=== PATIENT | female | born 1935 | race Caucasian/White ===

== ENCOUNTER 2016-08-30 11:05 | Emergency (ER) | payer MEDICARE, MEDICAID ==
[2016-08-30] MEDS ORDERED: ASPIRIN TABLET 325 MG TAB PO ONE (11:35)
[2016-08-30] MEDS ORDERED: SODIUM CHLORIDE 0.9% (FLUSH) 10 ML SYG IV PRN (11:35)
--- NOTE | 2016-08-30 11:52 | RAD ---
EXAM DESCRIPTION: Chest,1 View CLINICAL HISTORY: chest pain COMPARISON: August 24, 2013 IMPRESSION: Single AP portable upright view of the chest shows postsurgical changes from sternotomy and aortic valve replacement. Multilead left subclavian transvenous cardiac pacemaker is seen. There is increased density in the lower left perihilar region and elevated left hemidiaphragm with shift of the cardiomediastinal silhouette towards the left suggesting atelectasis of a portion of the left lung. There could also be left pleural effusion. This is significantly changed from previous. Consider further evaluation with postcontrast CT of the chest to exclude left hilar mass. Right lung is normally aerated and clear. No right pleural effusion is seen. Electronically signed by: Vito Su MD 08/30/2016 11:52 AM WARP HAND
[2016-08-30] MEDS ORDERED: MORPHINE SULFATE INJ 10 MG/ML VIAL IV ONE (13:32)
--- NOTE | 2016-08-30 15:09 | CT ---
EXAM DESCRIPTION: Chest w/o Contrast CLINICAL HISTORY: LEFT PLEURAL EFFUSION, CHEST PAIN COMPARISON: None. TECHNIQUE: Non contrast multidetector CT imaging of the chest. Multiplanar reconstructions were provided. FINDINGS: Today's exam of the chest is limited. Pneumobilia noted on today's study within the liver. Severe cardiomegaly. Severe coronary artery disease. Pacing device noted. Probable pulmonary artery hypertension as the main pulmonary artery measures 3 cm in diameter. There is atelectasis of the left upper lobe. Etiology may be related to obstruction of the upper lobe bronchi as they are not filled with air. The aerated left lower lobe appears grossly unremarkable. The right lung apices a few small pulmonary nodules that measure no more than 2-3 mm in diameter. IMPRESSION: There is atelectasis of the left upper lobe due to obstruction of the left upper lobe pulmonary bronchus as they are poorly visualized on today's noncontrasted exam. The atelectasis of the left upper lobe is felt to be due to an endobronchial lesion or mucous plug rather than a left hilar mass. Direct visualization is suggested. The aerated left lung and right lung demonstrate no urgent findings. There are a few small pleural nodule seen on the right lung. Small left pleural effusion noted. Pneumobilia of uncertain etiology seen on today's study. Electronically signed by: Dominick Hull MD 08/30/2016 3:08 PM FOOD SAFETY OFFICER
[2016-08-30 15:34] VITALS: TEMP 98
--- NOTE | 2016-08-30 16:00 | ED.PDOC ---
History of Present Illness - General Chief Complaint: Chest Pain/MD Stated Complaint: chest pain Time Seen by Provider: 08/30/16 12:27 Source: patient, family, [facility] Exam Limitations: other - History of Present Illness Initial Comments: FAMILY REPORTS THAT PT BEGAN TO COMPLAIN OF CHEST PAIN THIS MORNING. PAIN IS ASSOCIATED WITH OCCASIONAL COUGHING. PT DESCRIBES THE PAIN A STABBING SENSATION. NO FEVER, CHILLS, OR SHORTNESS OF BREATH REPORTED. Timing/Duration: 4-6 hours Severity/Quality: sharp, stabbing Location: substernal Chest Pain Radiation: no radiation Activities at Onset: none Prior Chest Pain/Cardiac Workup: no prior chest pain Improving Factors: nothing Worsening Factors: nothing Nitro Today/Relief: no nitro taken today Aspirin Treatment Today: no aspirin today Allergies/Adverse Reactions: Allergies Glyburide [From Glucovance] Allergy (Verified 03/29/16 13:00) Metformin Allergy (Verified 03/29/16 13:00) Rosuvastatin [From Crestor] Allergy (Verified 03/29/16 13:00) Statins Allergy (Verified 03/29/16 13:00) Varenicline [From Chantix] Allergy (Verified 03/29/16 13:00) Home Medications: Ambulatory Orders Cyanocobalamin [Vitamin B-12] 500 mcg SL DAILY 10/22/15 Digoxin 0.125 mg PO MISA-OTH-DAY 10/22/15 Furosemide [Lasix Tab] 80 mg PO DAILY 10/22/15 HYDROcodone 5MG/APAP 325MG [[place] 5/325] 1 ea PO Q6H PRN 10/22/15 Potassium Chloride [Micro-K] 10 meq PO DAILYBK 10/22/15 Acetaminophen W/ Codeine [Tylenol W/ CODEINE #3] 1 ea PO Q4H PRN 03/29/16 Folic Acid 400 mcg PO DAILY 03/29/16 Insulin Detemir [Levemir] 10 units SUBCU DAILY 03/29/16 Polyethylene Glycol 3350 [Miralax] 17 gm PO MOFR 03/29/16 Sotalol HCl 80 mg PO BID 03/29/16 Review of Systems - Review of Systems Constitutional: Denies: chills, fever EENTM: Denies: ear pain, throat pain Respiratory: States: see HPI, cough. Denies: short of breath Cardiology: States: see HPI, chest pain. Denies: palpitations Gastrointestinal/Abdominal: Denies: abdominal pain, nausea, vomiting Genitourinary: Denies: dysuria, frequency Musculoskeletal: Denies: joint pain, joint swelling Skin: Denies: lesions, rash Neurological: States: no symptoms reported Endocrine: States: no symptoms reported Hematologic/Lymphatic: States: no symptoms reported Past Medical History (General) - Patient Medical History Hx Seizures: No Hx Stroke: No Hx Dementia: Yes - AGE RELATED COG DECLINE Hx Asthma: No Hx of COPD: Yes Hx Cardiac Disorders: Yes - PVD Hx Congestive Heart Failure: Yes Hx Pacemaker: Yes Hx Hypertension: Yes Hx Diabetes: No Hx Gastroesophageal Reflux: Yes Hx Renal Disease: Yes Hx MRSA: No Surgical History: other - Vaccination History Hx Tetanus, Diphtheria Vaccination: No Hx Influenza Vaccination: Yes Hx Pneumococcal Vaccination: Yes - Social History Hx Tobacco Use: Yes Hx Chewing Tobacco Use: No Hx Alcohol Use: No Hx Substance Use: No Hx Physical Abuse: No Hx Emotional Abuse: No - Activities of Daily Living [facility]Assisted Living (if applicable):: [facility] Agency (if applicable):: None - Female History Patient is a Female of Child Bearing Age (10 -59 yrs old): No Patient : No Family Medical History - Family History Mother Family History: Unknown Living Status: Physical Exam - Physical Exam General Appearance: Alert, No apparent distress Eyes, Ears, Nose, Throat Exam: normal ENT inspection Neck: non-tender, full range of motion Respiratory: lungs clear, normal breath sounds Cardiovascular/Chest: regular rate, rhythm, no murmur Gastrointestinal/Abdominal: non tender, soft Extremity: normal range of motion, non-tender, normal inspection Neurologic: alert, normal mood/affect Skin Exam: normal color, warm/dry Progress - Progress Progress: 08/30/16 16:03 PT RESTING COMFORTABLY AT THIS TIME. PT STATES PAIN HAS RESOLVED AND REFUSED, IV MORPHINE THAT WAS ORDERED. LABS, CXR, CT FINDINGS DISCUSSED WITH FAMILY AND PATIENT WHO AGREE WITH PLAN TO TRANSFER TO [facility] FOR PULMONOLOGY AND CARDIOLOGY CONSULTATION SECONDARY TO FINDINGS ON CT OF CHEST. - Results/Orders Results/Orders: CXR SHOWS ATELECTASIS OF HOMA CONCERNING FOR OBSTRUCTIVE MASS, CT RECOMMENDED. CT CHEST SHOWS ATELECTASIS OF HOMA WITH POSSIBLE ENDOBRONCHIAL LESION VS MUCOUS PLUG, DIRECT VISUALIZATION RECOMMENDED. Laboratory Tests 08/30/16 11:46 WBC 10.2 RBC 3.68 L Hgb 10.6 L Hct 33.0 L MCV 89.5 MCH 28.8 MCHC 32.1 L RDW 16.6 H Plt Count 122 L MPV 10.9 H Absolute Neuts (auto) 8.80 H Absolute Lymphs (auto) 0.60 L Absolute Monos (auto) 0.70 Absolute Eos (auto) 0.10 Absolute Basos (auto) 0.10 Neutrophils % 86.6 H Lymphocytes % 5.6 L Monocytes % 6.6 Eosinophils % 0.5 L Basophils % 0.7 PT 13.3 H INR 1.180 PTT (SP) 31.9 Sodium 140 Potassium 5.3 H Chloride 109 Carbon Dioxide 23 Anion Gap 13.3 BUN 31 H Creatinine 1.31 H BUN/Creatinine Ratio 23.7 H Random Glucose 133 H Serum Osmolality 287.9 Calcium 9.2 Magnesium 2.0 Creatine Kinase 17 L CK-MB (CK-2) 0.9 CK-MB (CK-2) % Not Reportable Troponin I 0.03 B-Natriuretic Peptide 1200.0 H* - EKG/XRAY/CT EKG: LBBB Comments: PACED RHYTHM AT 70BPM, NO AXIS, QRS 172, QTC 498. Departure - Departure Clinical Impression: Pleural effusion, Concern about cancer without diagnosis Chest pain Qualifiers: Chest pain type: chest pain on breathing Qualifier Code: (R07.1) Chest pain on breathing Time of Disposition: 16:13 Disposition: Transfer to Hospital Condition: Good Departure Forms: ED Discharge - Pt. Copy, Patient Portal Self Enrollment Referrals: Kelton Segura III, MD [Primary Care Provider] - 1-2 Weeks Home Medications: Ambulatory Orders Cyanocobalamin [Vitamin B-12] 500 mcg SL DAILY 10/22/15 Digoxin 0.125 mg PO MISA-OTH-DAY 10/22/15 Furosemide [Lasix Tab] 80 mg PO DAILY 10/22/15 HYDROcodone 5MG/APAP 325MG [[place] 5/325] 1 ea PO Q6H PRN 10/22/15 Potassium Chloride [Micro-K] 10 meq PO DAILYBK 10/22/15 Acetaminophen W/ Codeine [Tylenol W/ CODEINE #3] 1 ea PO Q4H PRN 03/29/16 Folic Acid 400 mcg PO DAILY 03/29/16 Insulin Detemir [Levemir] 10 units SUBCU DAILY 03/29/16 Polyethylene Glycol 3350 [Miralax] 17 gm PO MOFR 03/29/16 Sotalol HCl 80 mg PO BID 03/29/16 Transfer to Outside Facility - Transfer Information Accepting Provider:: DR. CARTER Accepting Facility: [facility] Reason for Transfer: specialized care not available
[2016-08-30 17:47] VITALS: BP 108/68; O2SAT 96
== END 2016-08-30 17:48 | disposition short-term general hospital (02) ==
LOC: ER 11:05
DX: J90 Pleural effusion, not elsewhere classified (principal); R07.1 Chest pain on breathing; R91.8 Other nonspecific abnormal finding of lung field; I11.0 Hypertensive heart disease with heart failure; I50.9 Heart failure, unspecified; K21.9 Gastro-esophageal reflux disease without esophagitis; N28.9 Disorder of kidney and ureter, unspecified; J44.9 Chronic obstructive pulmonary disease, unspecified; F03.90 Unspecified dementia, unspecified severity, without behavioral disturbance, psychotic disturbance, mood disturbance, and anxiety; Z87.891 Personal history of nicotine dependence; Z88.8 Allergy status to other drugs, medicaments and biological substances; Z79.4 Long term (current) use of insulin; Z79.899 Other long term (current) drug therapy

== ENCOUNTER 2016-09-24 09:58 | Emergency (ER) | payer MEDICARE, MEDICAID ==
--- NOTE | 2016-09-24 10:46 | RAD ---
EXAM DESCRIPTION: Chest,1 View CLINICAL HISTORY: fall from chair with left post chest pain COMPARISON: August, CT of the chest dated 30 August 2016 TECHNIQUE: AP portable semierect chest FINDINGS: The patient is poststernotomy for valve replacement. A pacemaker with atrial and ventricular leads are seen in place. Persistent left upper lobe collapse is observed. Remains unchanged in the prior CT in the prior chest film cardiomegaly is evident. The right chest is clear. No pneumothorax is seen. No rib fracturing is detected. IMPRESSION: Persistent left upper lobe collapse is observed unchanged from the prior exam. Electronically signed by: Kelton Hunt MD 09/24/2016 10:45 AM CDT
--- NOTE | 2016-09-24 10:47 | RAD ---
EXAM DESCRIPTION: Scapula,Left CLINICAL HISTORY: fall from chair with left post chest pain COMPARISON: None. TECHNIQUE: 2 views FINDINGS: Mild degenerative changes are observed in the shoulder. No evidence for fracture or dislocation is seen. IMPRESSION: No fracture is detected. Electronically signed by: Kelton Hunt MD 09/24/2016 10:47 AM CDT
--- NOTE | 2016-09-24 10:50 | RAD ---
EXAM DESCRIPTION: Thoracic Spine Lateral Only CLINICAL HISTORY: fall from chair with left post chest pain COMPARISON: CT of the chest dated 30 August 2016 TECHNIQUE: Lateral view FINDINGS: Diffuse osteopenia is noted. Mild wedging of the T12 vertebral body is observed. It can be seen on the prior CT. No further evidence of fracturing is detected. IMPRESSION: Mild compression of T12 is observed. It can be seen on the previous CT of the chest performed on 30 August 2016 Electronically signed by: Kelton Hunt MD 09/24/2016 10:49 AM CDT
[2016-09-24 10:55] VITALS: O2SAT 97
--- NOTE | 2016-09-24 11:35 | CT ---
EXAM DESCRIPTION: Cervical Spine CLINICAL HISTORY: fall from chair COMPARISON: None available. TECHNIQUE: CT of the cervical spine was performed without IV contrast. FINDINGS: There is no vertebral body fracture or subluxation. No prevertebral soft tissue swelling. There are degenerative changes at the atlantoodontoid joint. Degenerative disc disease is noted at C5-6 and C6-7 with posterior osteophytic ridging at the same levels. This facet joint degeneration at several levels in the cervical spine with neuroforaminal stenosis and mild central canal stenosis involving at least the C6-7 level. The spinous and transverse processes are intact. Carotid artery calcifications are noted bilaterally. Cardiac pacemaker leads are present but only partially visualized. Emphysematous changes are noted. There is no apical pneumothorax. There is abnormal density anteriorly in the left hemithorax only partially visualized. Review of a chest CT performed on August 30, 2016 demonstrated left upper lobe atelectasis likely due to an endobronchial lesion, and findings are stable from that time. Small bilateral thyroid nodules are noted, the largest measuring 1.3 cm diameter in the left thyroid lobe with a tiny calcification. IMPRESSION: Moderately advanced multilevel degenerative changes, but no acute cervical spine abnormality. Left upper lobe atelectasis, only partially visualized. Please see separate report from recent chest CT for further discussion of findings and recommendations. Carotid artery calcifications bilaterally. Nonemergent carotid artery ultrasound is suggested for further evaluation. Emphysema. Small bilateral thyroid nodules. Based on their size and patient's age, no further follow-up is recommended. Electronically signed by: Willi Duffy MD 09/24/2016 11:34 AM CDT
--- NOTE | 2016-09-24 11:37 | CT ---
EXAM DESCRIPTION: Head CLINICAL HISTORY: 81 years, Female, fall from chair COMPARISON: Head CT performed on August 24, 2013 TECHNIQUE: Head CT was performed without IV contrast. FINDINGS: There is no acute intracranial hemorrhage. There is no midline shift or other mass effect. The ventricles and basilar cisterns are fairly well-maintained. Chronic ischemic changes are noted in the periventricular white matter. 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 No posterior fossa lesion or acute cortical infarct. The basal ganglia are unremarkable. Visualized paranasal sinuses and orbits are unremarkable. Vascular calcifications are noted. 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 Electronically signed by: Willi Duffy MD 09/24/2016 11:36 AM CDT
--- NOTE | 2016-09-24 12:19 | ED.PDOC ---
History of Present Illness - General Chief Complaint: Upper Extremity Injury Stated Complaint: left shoulder discomfort, skin tear left hand Time Seen by Provider: 09/24/16 10:05 Source: patient, family Exam Limitations: no limitations - History of Present Illness Initial Comments: the patient is an 81-year-old female presenting to the emergency room for long-term care facility due to the arm of the chair she was in breaking in her falling out of the chair. The patient landed on her left upper back around the scapular area and she does have some pain there and some mild bruising. Range of motion does appear to be preserved. She also somehow managed to get an abrasion to her forehead as well as a few small skin tears to her left hand. No loss of consciousness. No altered mental status. No other areas of pain that she is reporting. No real neck pain. Occurred: just prior to arrival Pain - Upper Extremity: mild: Shoulder, left Method of Injury: fell Improving Factors: nothing Worsening Factors: nothing Allergies/Adverse Reactions: Allergies Glyburide [From Glucovance] Allergy (Verified 09/24/16 10:08) Metformin Allergy (Verified 09/24/16 10:08) Rosuvastatin [From Crestor] Allergy (Verified 09/24/16 10:08) Statins Allergy (Verified 09/24/16 10:08) Varenicline [From Chantix] Allergy (Verified 09/24/16 10:08) Home Medications: Ambulatory Orders Cyanocobalamin [Vitamin B-12] 500 mcg SL DAILY 10/22/15 Digoxin 0.125 mg PO MISA-OTH-DAY 10/22/15 Furosemide [Lasix Tab] 80 mg PO DAILY 10/22/15 Potassium Chloride [Micro-K] 10 meq PO DAILYBK 10/22/15 Acetaminophen W/ Codeine [Tylenol W/ CODEINE #3] 1 ea PO Q4H PRN 03/29/16 Folic Acid 400 mcg PO DAILY 03/29/16 Sotalol HCl 80 mg PO BID 03/29/16 ALPRAZolam [Xanax] 0.25 mg PO Q12H PRN 09/24/16 Cholecalciferol [Vitamin D3] 50,000 unit PO DAILY 09/24/16 Cholestyramine Powder [Questran Powder] 4 gm PO BID 09/24/16 Lisinopril 2.5 mg PO DAILY 09/24/16 Megestrol Acetate [Megace Oral] 1 tsp PO DAILY 09/24/16 Metoprolol Succinate [Metoprolol Succinate ER] 25 mg PO DAILY 09/24/16 Mirtazapine [Remeron] 15 mg PO BEDTIME 09/24/16 Ranitidine HCl [Zantac] 300 mg PO BID 09/24/16 Review of Systems - Review of Systems Review of Systems: 09/24/16 12:19 compared to her baseline complaints: Constitutional: States: no symptoms reported EENTM: States: no symptoms reported Respiratory: States: no symptoms reported Cardiology: States: no symptoms reported Gastrointestinal/Abdominal: States: no symptoms reported Genitourinary: States: no symptoms reported Musculoskeletal: States: see HPI Skin: States: see HPI Neurological: States: no symptoms reported Endocrine: States: no symptoms reported All other Systems: No Change from Baseline Past Medical History (General) - Patient Medical History Hx Seizures: No Hx Stroke: Yes Hx Dementia: Yes - AGE RELATED COG DECLINE Hx Asthma: No Hx of COPD: Yes Hx Cardiac Disorders: Yes - PVD Hx Congestive Heart Failure: Yes Hx Pacemaker: Yes Hx Hypertension: Yes Hx Diabetes: No Hx Gastroesophageal Reflux: Yes Hx Renal Disease: Yes 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 Hx MRSA: No Surgical History: appendectomy, cholecystectomy, pacemaker, tonsillectomy, Hysterectomy - Vaccination History Hx Tetanus, Diphtheria Vaccination: Yes Hx Influenza Vaccination: Yes - 2016 Hx Pneumococcal Vaccination: Yes - 2016 - Social History Hx Tobacco Use: Yes Hx Chewing Tobacco Use: No Hx Alcohol Use: No Hx Substance Use: No Hx Physical Abuse: No Hx Emotional Abuse: No - Activities of Daily Living [facility] History Patient is a Female of Child Bearing Age (10 -59 yrs old): No Patient : No Family Medical History - Family History Mother Family History: Unknown Living Status: Hx Cardiac Disease: Yes Hx Family Diabetes: Yes Physical Exam - Physical Exam General Appearance: Alert, Comfortable, No apparent distress, Other - the patient is in not in distress. She is cooperative. She appears mildly drowsy. Eyes, Ears, Nose, Throat Exam: PERRL/EOMI, other - the patient is quite thin and does have cachexia. She has an abrasion to her forehead. Neck: non-tender, full range of motion, supple Cardiovascular/Respiratory: normal peripheral pulses, normal breath sounds - mild rales left base, no respiratory distress, other - regular rate Abdominal Exam: non-tender Back Exam: no vertebral tenderness, other - area surrounding the left scapula is lightly uncomfortable to palpation. There is some mild bruising in that area as well. Shoulder Exam: normal ROM, ecchymosis Elbow/Forearm Exam: normal inspection, non-tender, no evidence of injury, normal ROM Wrist Exam: normal inspection, non-tender, no evidence of injury, normal ROM Hand Exam: normal ROM Neuro/Tendon: normal sensation, normal motor functions, normal tendon functions Mental Status: alert, oriented x 3 Skin Exam: normal color - with the exception of the skin tears as stated above. None require suturing. Local wound care provided. Comments: Vital Signs - 24 hr 09/24/16 09/24/16 10:09 10:54 Temperature 97.9 F Pulse Rate [ 70 68 Left Radial] Respiratory 18 18 Rate Blood Pressure 110/52 97/52 [Left Arm] O2 Sat by Pulse 99 97 Oximetry Progress - Progress Progress: 09/24/16 12:22 the patient is an 81-year-old female who essentially fell out of the chair this morning after the arm of the chair broke. The patient has sustained skin tears to her left hand as well as her forehead. These have only required localized wound care. The patient hit on her left upper back and this is where she is having the discomfort. X-ray showed no evidence of fracture or dislocation. Suspect soft tissue injury only. X-ray showing old compression fracture of T12. CT scan of the head and cervical spine show no evidence of acute injury. There are chronic findings. There is persistent changes of the left lung that were noted earlier in the month. Routine care can otherwise be resumed with this patient as well as her workup for findings discovered earlier in the month. ER warnings were given for any acute worsening. Keep well hydrated. the patient can follow-up with her primary care doctor otherwise in 1 -2 weeks. 09/24/16 12:25 Departure - Departure Clinical Impression: Skin tear Contusion shoulder/arm Qualifiers: Encounter type: initial encounter Laterality: left Qualifier Code: (S40.012A) Contusion of left shoulder, initial encounter Disposition: Discharge to Asst Living Condition: Fair Departure Forms: ED Discharge - Pt. Copy, Patient Portal Self Enrollment Diet: regular diet Activity: increase activity as tolerated Referrals: Kelton Segura III, MD [Primary Care Provider] - 1-2 Weeks Home Medications: Ambulatory Orders Cyanocobalamin [Vitamin B-12] 500 mcg SL DAILY 10/22/15 Digoxin 0.125 mg PO MISA-OTH-DAY 10/22/15 Furosemide [Lasix Tab] 80 mg PO DAILY 10/22/15 Potassium Chloride [Micro-K] 10 meq PO DAILYBK 10/22/15 Acetaminophen W/ Codeine [Tylenol W/ CODEINE #3] 1 ea PO Q4H PRN 03/29/16 Folic Acid 400 mcg PO DAILY 03/29/16 Sotalol HCl 80 mg PO BID 03/29/16 ALPRAZolam [Xanax] 0.25 mg PO Q12H PRN 09/24/16 Cholecalciferol [Vitamin D3] 50,000 unit PO DAILY 09/24/16 Cholestyramine Powder [Questran Powder] 4 gm PO BID 09/24/16 Lisinopril 2.5 mg PO DAILY 09/24/16 Megestrol Acetate [Megace Oral] 1 tsp PO DAILY 09/24/16 Metoprolol Succinate [Metoprolol Succinate ER] 25 mg PO DAILY 09/24/16 Mirtazapine [Remeron] 15 mg PO BEDTIME 09/24/16 Ranitidine HCl [Zantac] 300 mg PO BID 09/24/16 Additional Instructions: the patient is an 81-year-old female who essentially fell out of the chair this morning after the arm of the chair broke. The patient has sustained skin tears to her left hand as well as her forehead. These have only required localized wound care. The patient hit on her left upper back and this is where she is having the discomfort. X-ray showed no evidence of fracture or dislocation. Suspect soft tissue injury only. X-ray showing old compression fracture of T12. CT scan of the head was negative for acute pathology as well as the CT scan of the cervical spine. There is persistent changes of the left lung that were noted earlier in the month. Routine care can otherwise be resumed with this patient as well as her workup for findings discovered earlier in the month. ER warnings were given for any acute worsening. Keep well hydrated. she can follow up with her primary care doctor in 1-2 weeks.
[2016-09-24 13:11] VITALS: BP 103/50; TEMP 97.5
== END 2016-09-24 13:03 ==
LOC: ER 09:58
DX: S40.012A Contusion of left shoulder, initial encounter (principal); F03.90 Unspecified dementia, unspecified severity, without behavioral disturbance, psychotic disturbance, mood disturbance, and anxiety; I11.0 Hypertensive heart disease with heart failure; I50.9 Heart failure, unspecified; J44.9 Chronic obstructive pulmonary disease, unspecified; K21.9 Gastro-esophageal reflux disease without esophagitis; S61.412A Laceration without foreign body of left hand, initial encounter; S01.81XA Laceration without foreign body of other part of head, initial encounter; W07.XXXA Fall from chair, initial encounter; Z86.73 Personal history of transient ischemic attack (TIA), and cerebral infarction without residual deficits; Z85.89 Personal history of malignant neoplasm of other organs and systems; Z95.0 Presence of cardiac pacemaker; Z88.8 Allergy status to other drugs, medicaments and biological substances; Z79.899 Other long term (current) drug therapy; Z87.891 Personal history of nicotine dependence; Z91.81 History of falling; Y92.129 Unspecified place in nursing home as the place of occurrence of the external cause

== ENCOUNTER → 2016-10-06 | Outpatient (CLI) | payer MEDICARE, MEDICAID | LOC: GT 08:22 | PROVIDERS: ATTEND Family Medicine | DX: I10 Essential (primary) hypertension (principal); D52.9 Folate deficiency anemia, unspecified ==

== ENCOUNTER → 2016-10-25 | Outpatient (CLI) | payer MEDICARE, MEDICAID | END | disposition home or self-care (01) | LOC: GT 07:34 | PROVIDERS: ATTEND Family Medicine | DX: I10 Essential (primary) hypertension (principal); I48.91 Unspecified atrial fibrillation; E56.8 Deficiency of other vitamins; D51.8 Other vitamin B12 deficiency anemias; D52.9 Folate deficiency anemia, unspecified ==

== ENCOUNTER → 2016-12-13 | Outpatient (CLI) | payer MEDICARE, MEDICAID | END | disposition home or self-care (01) | LOC: GT 08:47 | PROVIDERS: ATTEND Family Medicine | DX: D64.9 Anemia, unspecified (principal); J44.9 Chronic obstructive pulmonary disease, unspecified; E11.49 Type 2 diabetes mellitus with other diabetic neurological complication; I10 Essential (primary) hypertension ==

== ENCOUNTER → 2016-12-15 | Outpatient (CLI) | payer MEDICARE, OTHER | END | disposition home or self-care (01) | LOC: GT 08:12 | PROVIDERS: ATTEND Family Medicine | DX: I10 Essential (primary) hypertension (principal); E56.8 Deficiency of other vitamins; I48.91 Unspecified atrial fibrillation; D64.9 Anemia, unspecified; E11.49 Type 2 diabetes mellitus with other diabetic neurological complication | CPT/HCPCS: 36415; 80053; 82728; 83540; 83550; 85025; P9603 ==

== ENCOUNTER → 2016-12-23 | Outpatient (CLI) | payer MEDICARE, OTHER ==
--- NOTE | 2016-12-23 10:54 | RAD ---
EXAM DESCRIPTION: Barium Swallow CLINICAL HISTORY: 81 years Female, R13 COMPARISON: None. FINDINGS: Total fluoroscopy time 1.4 minutes, 20 fluoroscopic images including 1 cine clip. Exam is limited by patient's inability to stand during the exam and limited ability to drink barium contrast. Images were obtained in the prone BARBOSA position only. With this in mind, oral contrast is seen in the esophagus passing through the gastroesophageal junction into the stomach. No esophageal wall or fold thickening is identified. There is delayed passage of contrast through the esophagus suggestive of esophageal dysmotility, but no esophageal stricture or diverticulum is seen. IMPRESSION: Limited exam as detailed above with evidence of esophageal dysmotility, otherwise unremarkable exam. Electronically signed by: Willi Duffy MD 12/23/2016 10:52 AM CDT Workstation: [id number]
== END | disposition home or self-care (01) ==
LOC: RAD 09:52
PROVIDERS: ATTEND Family Medicine
DX: R13.0 Aphagia (principal); L03.317 Cellulitis of buttock

== ENCOUNTER → 2017-01-17 | Outpatient (CLI) | payer MEDICARE, OTHER ==
--- NOTE | 2017-01-18 10:39 | CT ---
EXAM DESCRIPTION: Chest w/Contrast CLINICAL HISTORY: LUNG MASS COMPARISON: CT chest without contrast on 08/30/2016 TECHNIQUE: Multiple axial images of the chest following intravenous contrast. Multiplanar reconstructions were provided. This exam was performed according to our departmental dose-optimization program, which includes automated exposure control, adjustment of the mA and/or kV according to patient size and/or use of iterative reconstruction technique. FINDINGS: Lungs: Near complete atelectasis/consolidation of the left upper lobe is again demonstrated, similar to the prior exam. There is heterogeneous density filling the distal left mainstem bronchus and upper lobe bronchus. There is also partial opacification of the proximal lower lobe bronchus. Associated small left pleural effusion is again demonstrated. Mild emphysema. The right lung is essentially clear. Mediastinum: The heart is enlarged. Changes of prior cardiac surgery with median sternotomy wires. A left chest wall cardiac device is present. The pulmonary artery is borderline enlarged, as before. The esophagus is unremarkable. Lymph nodes: There are no pathologically enlarged lymph nodes by CT size criteria. Chest wall and lower neck: No significant finding. Bones: The bones are demineralized. There is no destructive osseous lesion. Upper abdomen: Pneumobilia is again demonstrated. IMPRESSION: 1. Unchanged severe atelectasis or consolidation throughout the left upper lobe. There is a filling defect involving the left mainstem and upper lobe bronchus, with less pronounced involvement of the lower lobe bronchus. It is unclear if this relates to mucous plugging, infectious/inflammatory debris, versus an endobronchial neoplasm with postobstructive atelectasis/pneumonia. Bronchoscopy with direct inspection may further evaluate. 2. Small left pleural effusion. 3. Emphysema. 4. Cardiomegaly. 5. Pneumobilia. 6. Other findings as above. Electronically signed by: Ag Forman MD 01/18/2017 10:38 AM CDT
== END ==
LOC: CT 08:52
PROVIDERS: ATTEND Family Medicine
DX: D38.1 Neoplasm of uncertain behavior of trachea, bronchus and lung (principal); J90 Pleural effusion, not elsewhere classified; I51.7 Cardiomegaly

== ENCOUNTER → 2017-03-16 | Outpatient (CLI) | payer MEDICAID, MEDICARE | END | disposition home or self-care (01) | LOC: GT 11:08 | PROVIDERS: ATTEND Family Medicine | DX: I48.91 Unspecified atrial fibrillation (principal); E11.49 Type 2 diabetes mellitus with other diabetic neurological complication; D51.3 Other dietary vitamin B12 deficiency anemia; I10 Essential (primary) hypertension; E56.8 Deficiency of other vitamins ==

== ENCOUNTER → 2017-03-21 | Outpatient (CLI) | payer MEDICARE | END | disposition home or self-care (01) | LOC: GT 05:34 | PROVIDERS: ATTEND Family Medicine | DX: I10 Essential (primary) hypertension (principal); E56.8 Deficiency of other vitamins; E11.49 Type 2 diabetes mellitus with other diabetic neurological complication; E78.2 Mixed hyperlipidemia | CPT/HCPCS: 36415; 80053; 85025; P9603 ==